=== PATIENT | male | born 1955 | race African-American/Black ===

== ENCOUNTER 2017-03-13 14:07 | Outpatient (CLI) | payer MEDICARE, MEDICAID ==
--- NOTE | 2017-03-13 18:02 | Diagnostic Imaging Report ---
Indication: Right hip pain Technique: CT osseous pelvis/right hip was performed utilizing automated exposure control without intravenous contrast material. Axial and sagittal coronal images were generated. Thin section images of the right hip were obtained. CT dose: Total DLP 890.27 mGycm; CTDI vol 24.09,28.1 mGy Comparison: None Findings: There is no acute fracture or dislocation. There is abnormal sclerosis involving the bilateral pelvic bones, right greater than left, as well as the sacrum and visualized lower lumbar spine. For example there is dense, confluent sclerosis of the right posterior iliac spine and right sacroiliac (series 4 image #15). Sclerosis extends into the right iliac wing and the right ilium. There is a 3 x 2.5 cm focus of sclerosis in the proximal shaft of the right femur (series 4 image #64). There is focal sclerosis involving the right aspect of the lower most visualized lumbar vertebral body, which has a long transverse process seen to articulate with the iliac bone, suggesting transitional lumbosacral anatomy. Sclerosis affects of the left pelvic bones to a lesser degree. For example there is a 2.5 cm of sclerosis in the left iliac wing (series 4 image #18). There is a 1 cm sclerotic focus in the left inferior pubic ramus. Scattered atherosclerotic vascular calcifications are noted. There is a small fat-containing left inguinal hernia. No bulky pelvic lymphadenopathy is identified. IMPRESSION: No evidence of acute fracture or dislocation. Multiple areas of abnormal bony sclerosis visualized in the osseous pelvis, right greater than left, as detailed above. Differential considerations include osteoblastic metastases, which would be favored if there is a history of primary malignancy. Additional considerations include hematologic malignancy, myeloproliferative disorder, Paget's disease or renal osteodystrophy. Clinical correlation recommended. Consider MRI and/or biopsy for further evaluation. Suggestion of transitional lumbosacral anatomy. The CT scanner at [facility] is accredited by the [employer] and the scans are performed using protocols designed to limit radiation exposure to as low as reasonably achievable to attain images of sufficient resolution adequate for diagnostic evaluation.
== END 2017-03-13 16:07 | disposition home or self-care (01) ==
LOC: RAD 14:07
DX: M25.551 Pain in right hip (principal)